=== PATIENT | male | born 1940 | race Caucasian/White ===

== ENCOUNTER → 2016-12-19 | Day surgery (SDC) | payer MEDICARE, OTHER ==
[~2016-12-19] MED LIST: Acetaminophen/HYDROcodone 325-5 MG Tab PO PRN; Bupivacaine 0.25% 10 ML SDV INJECT ONE; Bupivacaine 0.25% 10 ML SDV ONE; Etomidate 2 MG/ML 10 ML SDV IV ONE; Glycopyrrolate 0.2 MG/ML SDV IVPUSH ONE; Lactated Ringers 1,000 ML IV SCH; Lidocaine 2% 20 ML MDV INJECT ONE; Lidocaine 2% 20 ML MDV ONE; Midazolam 1 MG/ML 2 ML SDV IV ONE; Morphine 4 MG/ML Syringe IVPUSH PRN; Neostigmine Methylsulfate 10 MG/10 ML MDV IV ONE; Ondansetron 4 MG/2 ML SDV IV ONE; Ondansetron 4 MG/2 ML SDV IVPUSH PRN; Rocuronium 50 MG/5 ML Vial IV ONE; Succinylcholine 200 MG/10 ML MDV IV ONE; ceFAZolin 1 GM Vial IVPUSH ONE; fentaNYL 100 MCG/2 ML SDV IV ONE; fentaNYL 100 MCG/2 ML SDV IVPUSH PRN
[2016-12-19 13:18] VITALS: BP 120/77
--- NOTE | 2016-12-20 07:42 | OR ---
DATE OF OPERATION: 12/19/2016 PREOPERATIVE DIAGNOSIS: CHRONIC CHOLECYSTITIS. POSTOPERATIVE DIAGNOSIS: CHRONIC CHOLECYSTITIS. SURGEON: Colt Lopez MD PROCEDURE: LAPAROSCOPIC CHOLECYSTECTOMY. ANESTHESIA: General. DESCRIPTION OF PROCEDURE: After patient was anesthetized satisfactorily, patient's abdomen was prepped with iodoform. The patient was given sterile drapes. A small skin incision was made in the midline. It was carried down through skin, subcutaneous tissue, down through deep fascia. Deep fascia and peritoneum were opened. An 11-mm blunt trocar was introduced. CO2 gas was insufflated. Under direct camera vision, another 11-mm trocar was introduced in the subxiphoid space and a 5 mm in the right upper quadrant. Gallbladder was held in position. There were quite a few adhesions present which were taken down with the help of dissector. Then dissection was done at the cystic duct and cystic artery where both exposed. Junction of the cystic duct with the gallbladder and common bile duct were exposed. Then, cystic duct and cystic artery were both clipped and divided. Then gallbladder was taken off its bed with the help of Hook cautery and removed from the peritoneal cavity using Endopouch. Gallbladder bed was examined. Hemostasis was satisfactory. CO2 gas was desufflated out. Various ports were removed. Deep fascia was closed with 0 Ethibond running suture. Skin was closed with 4-0 Vicryl subcuticular sutures. The patient was given sterile dressing. He tolerated the procedure well and left the operating room in satisfactory condition. GARY/JEWELL /[id number]
== END ==
LOC: CC.SDS 08:55
PROVIDERS: ATTEND Surgery
DX: K81.1 Chronic cholecystitis (principal); I10 Essential (primary) hypertension; E78.5 Hyperlipidemia, unspecified; G47.30 Sleep apnea, unspecified; N40.1 Benign prostatic hyperplasia with lower urinary tract symptoms; R35.1 Nocturia; I25.10 Atherosclerotic heart disease of native coronary artery without angina pectoris; E11.9 Type 2 diabetes mellitus without complications; E55.9 Vitamin D deficiency, unspecified; Z79.82 Long term (current) use of aspirin; Z79.899 Other long term (current) drug therapy; Z98.890 Other specified postprocedural states; F17.210 Nicotine dependence, cigarettes, uncomplicated
CPT/HCPCS: 47562; 82962; 88304; A9270; J0330; J0690; J2250; J2405; J2710; J3010; J7120; 00790

== ENCOUNTER → 2018-07-06 | Day surgery (SDC) | payer MEDICARE, OTHER ==
[~2018-07-06] MED LIST changes: -Acetaminophen/HYDROcodone 325-5 MG Tab PO PRN; -Bupivacaine 0.25% 10 ML SDV INJECT ONE; -Bupivacaine 0.25% 10 ML SDV ONE; -Etomidate 2 MG/ML 10 ML SDV IV ONE; -Glycopyrrolate 0.2 MG/ML SDV IVPUSH ONE; -Lidocaine 2% 20 ML MDV INJECT ONE; -Lidocaine 2% 20 ML MDV ONE; -Midazolam 1 MG/ML 2 ML SDV IV ONE; -Morphine 4 MG/ML Syringe IVPUSH PRN; -Neostigmine Methylsulfate 10 MG/10 ML MDV IV ONE; -Ondansetron 4 MG/2 ML SDV IV ONE; -Ondansetron 4 MG/2 ML SDV IVPUSH PRN; +Propofol 200 MG/20 ML SDV IV ONE; -Rocuronium 50 MG/5 ML Vial IV ONE; -Succinylcholine 200 MG/10 ML MDV IV ONE; -ceFAZolin 1 GM Vial IVPUSH ONE; -fentaNYL 100 MCG/2 ML SDV IV ONE; -fentaNYL 100 MCG/2 ML SDV IVPUSH PRN
[2018-07-06 08:24] VITALS: BP 119/64
--- NOTE | 2018-07-06 14:33 | OR ---
DATE OF OPERATION: 07/06/2018 PREOPERATIVE DIAGNOSIS: DYSPEPSIA WITH GASTROESOPHAGEAL REFLUX DISEASE. POSTOPERATIVE DIAGNOSIS: 1. GASTRITIS, DUODENITIS. 2. ANTRAL THICKENING WORRISOME FOR DYSPLASIA. SURGEON: Rusty Gaines MD PROCEDURE: EGD WITH BIOPSIES X7, LUIS. ANESTHESIA: MAC via [employer]. COMPLICATIONS: None. SPECIMEN: 1. Duodenal bulb biopsy x1. 2. Antral biopsy x2. 3. Fundal biopsy x4. 4. LUIS. FINDINGS: 1. Full-length EGD. 2. Diffuse gastritis, duodenitis. 3. Antral thickening/mass. RECOMMENDATIONS: Close medical followup pending path reports. The patient has I believe been initiated on proton pump therapy for his dyspepsia. We will keep in close contact with Dr. Carrillo for pathology followup. INDICATIONS: The patient has been having some ongoing issues for the last 1 or 2 months with dyspepsia and epigastric pain. Dr. Carrillo sent him for EGD. DESCRIPTION OF PROCEDURE: The patient was prepped and draped, placed in the left lateral decubitus position. A lubricated Olympus gastroscope was inserted over a bit, advanced to cricopharyngeus area, and easily intubated in the esophagus. The esophageal lining was benign in its entire course. The Z-line was crisp and sharp at 39 cm. There was no distal esophagitis, stricturing, ulceration, or Nolan's changes. No hernia seen and no spontaneous reflux visualized. The scope was easily advanced into the stomach, through the pylorus, and into the second portion of the duodenum. The second portion of the duodenum was unremarkable. The duodenal bulb had some [id number] gastritis. No angel ulcerations. Biopsy was taken. The scope was brought back into the stomach and retroflexed. The furthermost upper cardia was benign. The uppermost part of the fundus had some diffuse changes of gastritis. There were some areas of thickening in the upper fundus. Upon straightening, the rest of the fundus and antrum were evaluated. There appeared to be diffuse gastritis. There were some areas of nodular thickening in the distal fundus right at and above the incisura angularis along the lesser curvature, very worrisome for dysplasia. We did do 3 biopsies of the lower fundus and 1 of the upper fundus, lower cardia portion of the stomach at these areas of thickening and possible dysplasia. There were no angel ulcerations or gross bleeding or masses otherwise. The antrum had diffuse gastritis as well. Two areas of the antrum were biopsied and a CLOtest was obtained. Air was then suctioned from the stomach and the scope removed without complication. NIKOS/JEWELL /[id number]
== END ==
LOC: CC.SDS 06:16
PROVIDERS: ATTEND Family Medicine
DX: K29.50 Unspecified chronic gastritis without bleeding (principal); K31.7 Polyp of stomach and duodenum; K29.80 Duodenitis without bleeding; K26.9 Duodenal ulcer, unspecified as acute or chronic, without hemorrhage or perforation; K21.9 Gastro-esophageal reflux disease without esophagitis; K31.89 Other diseases of stomach and duodenum; Z79.4 Long term (current) use of insulin; Z79.899 Other long term (current) drug therapy
CPT/HCPCS: 00731; 87081; J2704; J7120

== ENCOUNTER 2023-06-23 06:46 | Day surgery (SDC) | payer MEDICARE, OTHER ==
[2023-06-23] MEDS: Lactated Ringers 1,000 ML IV SCH (07:09)
[2023-06-23] MEDS ORDERED: Ketamine 200 MG/20 ML MDV ONE (07:25)
[2023-06-23] MEDS ORDERED: Propofol 200 MG/20 ML SDV ONE (07:25)
[2023-06-23] MEDS ORDERED: fentaNYL 50 MCG/ML SDV ONE (07:25)
[2023-06-23 10:32] VITALS: BP 138/52; PULSE 44
== END 2023-06-23 09:25 | disposition home or self-care (01) ==
LOC: CC.SDS 06:46
PROVIDERS: ATTEND Family Medicine
DX: Z12.11 Encounter for screening for malignant neoplasm of colon (principal); D12.3 Benign neoplasm of transverse colon; D12.5 Benign neoplasm of sigmoid colon; K62.1 Rectal polyp; K57.30 Diverticulosis of large intestine without perforation or abscess without bleeding; E11.9 Type 2 diabetes mellitus without complications; I10 Essential (primary) hypertension; E78.5 Hyperlipidemia, unspecified; K21.9 Gastro-esophageal reflux disease without esophagitis; I25.10 Atherosclerotic heart disease of native coronary artery without angina pectoris; G47.33 Obstructive sleep apnea (adult) (pediatric); Z86.010 Personal history of colon polyps; Z79.82 Long term (current) use of aspirin; Z79.4 Long term (current) use of insulin; Z79.899 Other long term (current) drug therapy
CPT/HCPCS: 00811; 88305; 99100; J2704; J3010; J3490; J7120